=== PATIENT | female | born 1955 | race African-American/Black ===

== ENCOUNTER → 2017-01-07 | Outpatient (CLI) | payer OTHER ==
[2014-08-22 18:30] VITALS: BP 149/72
[~2017-01-07] MED LIST: ASPI325T70 PO; ATOR40TA59 PO; CIPR500T94 PO; CITA10TA4 PO; HYDR25TA9 PO; OLME1TAB PO; OXYC10TA PO
--- NOTE | 2017-01-07 12:04 | RAD ---
Indication chronic back pain. AP and lateral views of the lumbar spine were obtained as well as oblique views and a coned view targeted to the lumbosacral junction. Vertebral height is well maintained. There are small osteophytes seen at L1 and L2. Facet degenerative changes are seen at L4-5 and L5-S1. An acute bony finding is not seen. IMPRESSION: Modest spondylitic changes. No acute finding seen
== END | disposition home or self-care (01) ==
LOC: DXRADRC 11:34
PROVIDERS: ATTEND General Practice
DX: M47.897 Other spondylosis, lumbosacral region (principal)
CPT/HCPCS: 72110

== ENCOUNTER → 2017-01-22 | Outpatient (CLI) | payer OTHER ==
[2014-08-22 18:30] VITALS: BP 149/72
--- NOTE | 2017-01-22 11:16 | RAD ---
DATE: 01/22/2017 EXAM: DIGITAL SCREEN BILAT W/CAD HISTORY: Screening COMPARISON: Digitized film screen examination from 02/27/2012 This study was interpreted with the benefit of Computerized Aided Detection (CAD). FINDINGS: The breast parenchyma is primarily fatty replaced. Breast parenchyma level density A.. No dominant mass or suspect calcifications are seen. There has not been a significant change in the appearance of the breasts compared to the previous exam. IMPRESSION: Benign findings BI-RADS CATEGORY: 2 BENIGN FINDING(S) RECOMMENDED FOLLOW-UP: 12M 12 MONTH FOLLOW-UP PQRS compliance statement: Patient information was entered into a reminder system with a target due date 01/22/2018 for the next mammogram. Mammography is a sensitive method for finding small breast cancers, but it does not detect them all and is not a substitute for careful clinical examination. A negative mammogram does not negate a clinically suspicious finding and should not result in delay in biopsying a clinically suspicious abnormality. "Our facility is accredited by the [employer] Mammography Program."
--- NOTE | 2017-01-22 12:25 | RAD ---
Indication ovarian failure. Baseline exam. Screening for osteoporosis/osteopenia. The lumbar spine and right hip were evaluated. No prior bone density analysis is available. The calculated average bone mineral density in the lumbar spine is approximately 1.5 g/cc. The T score of 2.3 is normal. In the right hip the average bone mineral density is approximately 1.4 g/cc with a T score 3.6 which is also normal. IMPRESSION: Normal bone mineral density in the lumbar spine and right hip
== END | disposition home or self-care (01) ==
LOC: MAMMO 09:51
PROVIDERS: ATTEND Nurse Practitioner Family
DX: Z12.31 Encounter for screening mammogram for malignant neoplasm of breast (principal); Z78.0 Asymptomatic menopausal state
CPT/HCPCS: 77080; G0202; 77067

== ENCOUNTER 2018-05-06 08:55 | Emergency (ER) | payer OTHER ==
[~2018-05-06 08:55] MED LIST changes: -OLME1TAB PO; +OLME1TAB21 PO
--- NOTE | 2018-05-06 09:07 | ED.ADGEN ---
Past History Past Medical History: High Cholesterol, Heart Disease, Hypertension Past Surgical History: , Other Smoking: Non-smoker Alcohol Use: None Drug Use: None Adult General Chief Complaint Chief Complaint Abdominal wall hernia pain HPI HPI Patient is a 63-year-old female who presents with large ventral wall hernia with increased pain over the hernia site since yesterday. Patient states her hernia pops out every few months and she has been unable to reduce it since yesterday. Reports nausea, no vomiting. Patient states she is unable to have a bowel movement or pass flatus. No fever chills or sweats. No back pain. No other acute symptoms or complaints. Patient states she was previously told her hernia is inoperable. [] Review of Systems Review of Systems Review symptoms as per history of present illness. All other review symptoms are negative. All other systems were reviewed and found to be within normal limits, except as documented in this note. Current Medications Current Medications Current Medications Medications (Trade) Dose Ordered Sig/Aby Start Time Stop Time Status Last Admin Dose Admin Benzocaine (Hurricaine One) 1 spray 1X ONCE 05/06/18 12:30 05/06/18 12:31 DC 05/06/18 13:09 1 SPRAY Fentanyl Citrate (Fentanyl 2ml Vial) 50 mcg 1X ONCE 05/06/18 11:30 05/06/18 11:31 DC 05/06/18 11:21 50 MCG Morphine Sulfate (Morphine 2mg Syringe) 2 mg 1X ONCE 05/06/18 13:00 05/06/18 13:09 DC 05/06/18 13:01 2 MG Ondansetron HCl (Zofran) 4 mg 1X ONCE 05/06/18 09:15 05/06/18 09:16 DC 05/06/18 09:20 4 MG Sodium Chloride 1,000 ml @ 1,000 mls/hr 1X ONCE 05/06/18 10:30 05/06/18 11:29 DC 05/06/18 11:09 1,000 MLS/HR Allergies Allergies Allergies Coded Allergies Type Severity Reaction Last Updated Verified No Known Drug Allergies 05/06/18 No Physical Exam Physical Exam Constitutional: Well developed, well nourished, alert distress secondary to pain. [] HENT: Normocephalic, atraumatic, bilateral external ears normal, oropharynx moist, no oral exudates, nose normal. [] Eyes: PERRLA, EOMI, conjunctiva normal, no discharge. [] Neck: Normal range of motion, no tenderness, supple, no stridor. [] Cardiovascular:Heart rate regular rhythm, no murmur [] Lungs & Thorax: Bilateral breath sounds clear to auscultation [] Abdomen: Bowel sounds normal, soft, added, large ventral hernia, incarcerated, normal bowel sounds. [] Skin: Warm, dry, no erythema. [] Back: No tenderness, no CVA tenderness. [] Extremities: No tenderness. [] Neurologic: Alert and oriented X 3, normal motor function, normal sensory function, no focal deficits noted. [] Psychologic: Affect normal, judgement normal, mood normal. [] Current Patient Data Vital Signs Vital Signs Date Time Temp Pulse Resp B/P (MAP) Pulse Ox O2 Delivery O2 Flow Rate FiO2 05/06/18 13:01 24 96 Room Air 05/06/18 13:00 75 164/95 (118) 05/06/18 09:06 98.2 Lab Results Laboratory Tests Test 05/06/18 09:14 05/06/18 11:04 White Blood Count 8.2 x10^3/uL (4.0-11.0) Red Blood Count 6.08 x10^6/uL (3.50-5.40) H Hemoglobin 16.1 g/dL (12.0-15.5) H Hematocrit 48.4 % (36.0-47.0) H Mean Corpuscular Volume 80 fL (79-100) Mean Corpuscular Hemoglobin 27 pg (25-35) Mean Corpuscular Hemoglobin Concent 33 g/dL (31-37) Red Cell Distribution Width 14.5 % (11.5-14.5) Platelet Count 426 x10^3/uL (140-400) H Neutrophils (%) (Auto) 77 % (31-73) H Lymphocytes (%) (Auto) 16 % (24-48) L Monocytes (%) (Auto) 6 % (0-9) Eosinophils (%) (Auto) 0 % (0-3) Basophils (%) (Auto) 1 % (0-3) Neutrophils # (Auto) 6.3 x10^3uL (1.8-7.7) Lymphocytes # (Auto) 1.3 x10^3/uL (1.0-4.8) Monocytes # (Auto) 0.5 x10^3/uL (0.0-1.1) Eosinophils # (Auto) 0.0 x10^3/uL (0.0-0.7) Basophils # (Auto) 0.1 x10^3/uL (0.0-0.2) Sodium Level 139 mmol/L (136-145) Potassium Level 4.0 mmol/L (3.5-5.1) Chloride Level 100 mmol/L (98-107) Carbon Dioxide Level 25 mmol/L (21-32) Anion Gap 14 (6-14) Blood Urea Nitrogen 19 mg/dL (7-20) Creatinine 1.5 mg/dL (0.6-1.0) H Estimated GFR (Cockcroft-Gault) 42.4 BUN/Creatinine Ratio 13 (6-20) Glucose Level 153 mg/dL (70-99) H Lactic Acid Level 2.1 mmol/L (0.4-2.0) H Calcium Level 9.4 mg/dL (8.5-10.1) Total Bilirubin 0.8 mg/dL (0.2-1.0) Aspartate Amino Transferase (AST) 20 U/L (15-37) Alanine Aminotransferase (ALT) 36 U/L (14-59) Alkaline Phosphatase 106 U/L (46-116) Total Protein 8.6 g/dL (6.4-8.2) H Albumin 3.6 g/dL (3.4-5.0) Albumin/Globulin Ratio 0.7 (1.0-1.7) L Lipase 121 U/L (73-393) Urine Collection Type Void Urine Color Frances Urine Clarity Cloudy Urine pH 6.0 Urine Specific [place] >=1.030 Urine Protein 100 mg/dl (NEG-TRACE) Urine Glucose (UA) Neg mg/dL (NEG) Urine Ketones (Stick) 15 mg/dL (NEG) Urine Blood Neg (NEG) Urine Nitrite Neg (NEG) Urine Bilirubin Neg (NEG) Urine Urobilinogen Dipstick 0.2 mg/dL (0.2 mg/dL) Urine Leukocyte Esterase Neg (NEG) Urine RBC 0 /HPF (0-2) Urine WBC 1-4 /HPF (0-4) Urine Squamous Epithelial Cells Many /LPF Urine Bacteria Few /HPF (0-FEW) Urine Hyaline Casts Many /HPF Urine Mucus Marked /LPF EKG EKG [] Radiology/Procedures Radiology/Procedures [CT abdomen pelvis without contrast: Large ventral wall hernia with incarcerated : With sequential wall thickening and regular luminal narrowing at this level of the sigmoid: Concerning for a circumferential mass. Nonspecific mesenteric nodes are present.] Course & Med Decision Making Course & Med Decision Making Pertinent Labs and Imaging studies reviewed. (See chart for details) [ISigmoid mass with colonic obstruction. NG tube placed. Dr. Jamison to see in surgical consult. Dr. Collins accepts to [facility]] Final Impression Final Impression [1. colonic obstruction 2. sigmoid mass] Dragon Disclaimer Dragon Disclaimer This electronic medical record was generated, in whole or in part, using a voice recognition dictation system. JILL MONROY DO May 06, 2018 09:07
[2018-05-06] MEDS ORDERED: ONDANSETRON PF 4 MG/2 ML VIAL. IV ONE (09:15)
[2018-05-06] MEDS ORDERED: IV NORMAL SALINE 1,000ML 1,000 ML IV ONE ×2 (09:15→10:30)
[2018-05-06 09:25] LABS: BASO # 0.1 x10^3/uL (0.0-0.2); BASO % 1 % (0-3); EOS % 0 % (0-3); HEMATOCRIT 48.4 % (36.0-47.0); HEMOGLOBIN 16.1 g/dL (12.0-15.5); LYMPH # 1.3 x10^3/uL (1.0-4.8); LYMPH % 16 % (24-48); MEAN CORPUSCULAR HEMOGLOBIN 27 pg (25-35); MEAN CORPUSCULAR HGB CONC 33 g/dL (31-37); MEAN CORPUSCULAR VOLUME 80 fL (79-100); MONO # 0.5 x10^3/uL (0.0-1.1); MONO % 6 % (0-9); NEUT # 6.3 x10^3uL (1.8-7.7); NEUT % 77 % (31-73); PLATELET COUNT 426 x10^3/uL (140-400); RED BLOOD COUNT 6.08 x10^6/uL (3.50-5.40); RED CELL DISTRIBUTION WIDTH 14.5 % (11.5-14.5); WHITE BLOOD COUNT 8.2 x10^3/uL (4.0-11.0)
[2018-05-06 09:42] LABS: ALBUMIN 3.6 g/dL (3.4-5.0); ALBUMIN/GLOBULIN RATIO 0.7 (1.0-1.7); CALCIUM 9.4 mg/dL (8.5-10.1); CREATININE 1.5 mg/dL (0.6-1.0); GFR 42.4; TOTAL BILIRUBIN 0.8 mg/dL (0.2-1.0); TOTAL PROTEIN 8.6 g/dL (6.4-8.2)
[2018-05-06 11:27] LABS: BILIRUBIN,URINE NEG (NEG); CLARITY,URINE CLOUDY; COLOR,URINE AMBER; GLUCOSE,URINE NEG (NEG)
[2018-05-06 11:28] LABS: BACTERIA,URINE FEW /HPF (0-FEW); HYALINE CASTS, URINE MANY /HPF; NITRITE,URINE NEG (NEG); RBC,URINE 0 /HPF (0-2); SQUAMOUS EPITHELIAL CELL,UR MANY /LPF; UROBILINOGEN,URINE 0.2 mg/dL (0.2 mg/dL)
[2018-05-06] MEDS ORDERED: BENZOCAINE ONE 20% MUCOSAL SPRAY. (12:16)
[2018-05-06] MEDS ORDERED: BENZOCAINE ONE 20% MUCOSAL SPRAY. MM (12:30)
--- NOTE | 2018-05-06 12:35 | RAD ---
CT abdomen pelvis without intravenous contrast History: Abdominal pain for several days. Comparison: Report of CT abdomen pelvis October 15, 2013. Direct images are electronically unavailable. Technique: CT of the abdomen and pelvis was performed without intravenous or oral contrast. Exposure: One or more of the following individualized dose reduction techniques were utilized for this examination: 1. Automated exposure control 2. Adjustment of the mA and/or kV according to patient size 3. Use of iterative reconstruction technique Findings: Evaluation of solid organs is limited by lack of intravenous contrast. Evaluation of enteric structures may be limited by lack of oral contrast. Fatty liver disease is seen. Spleen, pancreas, and bilateral adrenal glands unremarkable. Gallbladder demonstrates presence of mildly dense material, may be sludge or possibly vicarious excretion of intravenous contrast recent procedure requiring such. Bilateral kidneys and ureters are free of stone or obstruction. Mild aortic atherosclerosis is seen. The appendix is apparently enlarged with a maximum diameter of 11 mm, although no periappendiceal inflammation is identified; enlargement of the appendix may be due to presence of a colonic distention by gas and fluid. Urinary bladder is unremarkable. Uterus is grossly unremarkable. Large, [place] ventral hernia is seen, incompletely visualized. There appears to been a previous repair with mesh and recurrent hernia is thought present along the inferior aspect. Much of the colon is distended by a liquid stool and gas. A transition point can be seen involving the mid sigmoid colon. The transition point demonstrates circumferential wall thickening and narrowing of the lumen of sigmoid colon; length of narrowing is approximately 3-4 cm. Circumferential mass is suspected. There are a few small adjacent mesenteric lymph nodes which are not convincingly pathologic by size; largest mesenteric lymph node measures 4 mm in short axis. Much of the distal left sigmoid colon is decompressed. Small amount of stool is present in the rectum. Impression: 1. Colonic obstruction at the level of the mid sigmoid colon. The transition point is associated with a circumferential wall thickening and irregular luminal narrowing of the sigmoid colon, worrisome for a circumferential mass. A few small nonspecific adjacent mesenteric lymph nodes are seen. 2. Recurrent ventral hernia. 3. Appendix is enlarged, but no convincing periappendiceal inflammation is identified. The appendiceal enlargement is thought to be a secondary to colonic obstruction with presence of a large amount of gas and liquid stool in the colon. Appendicitis is thought unlikely. Electronically signed by: Yrn Crow MD (05/06/2018 12:31 PM) [place] [id number]
[2018-05-06] MEDS ORDERED: MORPHINE SULFATE 2 MG/ML DISP.SYRIN. ONE (12:55)
[2018-05-06] MEDS ORDERED: MORPHINE SULFATE 2 MG/ML DISP.SYRIN. IV ONE (13:00)
--- NOTE | 2018-05-06 13:40 | RAD ---
KUB Clinical Indication: POST NG PLACEMENT Comparison: CT abdomen and pelvis without contrast, earlier same day. Findings: There is enteric tube tip in the proximal stomach. No obvious opacity in the lung bases. Mild air in bowel. Lower abdomen is outside of [id number]. Unchanged mildly dilated colon in the midabdomen. IMPRESSION: Enteric tube tip is in the proximal stomach. Electronically signed by: Juni Buitrago MD (05/06/2018 1:36 PM) [id number]
[2018-05-06 13:47] VITALS: BP 187/107
== END 2018-05-06 13:48 | disposition short-term general hospital (02) ==
LOC: ER 08:55
DX: K56.609 Unspecified intestinal obstruction, unspecified as to partial versus complete obstruction (principal); K63.89 Other specified diseases of intestine; K43.9 Ventral hernia without obstruction or gangrene; E78.00 Pure hypercholesterolemia, unspecified; I11.9 Hypertensive heart disease without heart failure; Z98.890 Other specified postprocedural states
CPT/HCPCS: 36415; 74018; 74176; 80053; 81001; 83605; 83690; 85025; 96374; 96375; 96376; 99285; J2270; J2405; J3010; J7030

== ENCOUNTER 2018-05-26 15:11 | Emergency (ER) | payer OTHER ==
[2018-05-26 15:24] VITALS: BP 163/95
--- NOTE | 2018-05-26 15:47 | PHYS DOC ---
Past History Past Medical History: Other Past Surgical History: Other Smoking: Non-smoker Alcohol Use: None Drug Use: None Adult General Chief Complaint Chief Complaint: OSTOMY PROBLEM HPI HPI Patient is a 63 year old female who presents with complaining of colostomy problem. 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 Patient denies fever and chills and abdominal pain. Review of Systems Review of Systems Constitutional: Denies fever or chills [] Eyes: Denies change in visual acuity, redness, or eye pain [] HENT: Denies nasal congestion or sore throat [] Respiratory: Denies cough or shortness of breath [] Cardiovascular: No additional information not addressed in HPI [] GI: Denies abdominal pain, nausea, vomiting, bloody stools or diarrhea [] : Denies dysuria or hematuria [] Musculoskeletal: Denies back pain or joint pain [] Integument: Denies rash or skin lesions [] Neurologic: Denies headache, focal weakness or sensory changes [] Endocrine: Denies polyuria or polydipsia [] All other systems were reviewed and found to be within normal limits, except as documented in this note. Allergies Allergies Allergies Coded Allergies Type Severity Reaction Last Updated Verified No Known Drug Allergies 05/06/18 No Physical Exam Physical Exam Constitutional: Well developed, well nourished, no acute distress, non-toxic appearance. [] HENT: Normocephalic, atraumatic.] Eyes: PERRLA, EOMI, conjunctiva normal, no discharge. [] Neck: Normal range of motion, no tenderness, supple, no stridor. [] Cardiovascular:Heart rate regular rhythm, no murmur [] Lungs & Thorax: Bilateral breath sounds clear to auscultation [] Abdomen: Bowel sounds normal, soft, no tenderness, no masses, no pulsatile masses, left colostomy in place with good color of ostomy and the skin around it Skin: Warm, dry, no erythema, no rash. [] Back: No tenderness, no CVA tenderness. [] Extremities: No tenderness, no cyanosis, no clubbing, ROM intact, no edema. [] Neurologic: Alert and oriented X 3, normal motor function, normal sensory function, no focal deficits noted. [] Psychologic: Affect normal, judgement normal, mood normal. [] Current Patient Data Vital Signs Vital Signs Date Time Temp Pulse Resp B/P (MAP) Pulse Ox O2 Delivery O2 Flow Rate FiO2 05/26/18 15:24 98.5 75 18 97 Room Air EKG EKG [] Radiology/Procedures Radiology/Procedures [] Course & Med Decision Making Course & Med Decision Making discharge: I've spoken with the patient and/or caregivers. I've explained the patient's condition, diagnosis and treatment plan based on information available to me at this time. I've answered the patient's and/or caregivers questions and addressed any concerns. The patient and/or caregivers have a good understanding the patient's diagnosis, condition and treatment plan as can be expected at this point. Vital signs have been stabilized. The patient's condition is stable for discharge from the emergency department. The patient will pursue further outpatient evaluation with her primary care provider or other designated consulting physician as outlined in the discharge instructions. Patient and/or caregivers are agreeable to this plan of care and follow-up instructions have been explained in detail. The patient and/or caregivers have received these instructions in written format and expressed understanding of these discharge instructions. The patient and her caregivers are aware that if any significant change in condition or worsening of symptoms should prompt him to immediately return to this of the closest emergency department. If an emergent department is not readily available I would encourage him to call 911. iVckyon Disclaimer Dragon Disclaimer This electronic medical record was generated, in whole or in part, using a voice recognition dictation system. Departure Departure: Impression: Primary Impression: Deficient knowledge of colostomy home care Disposition: HOME, SELF-CARE (at 1546) Condition: STABLE Referrals: JAYCE CORDON DO (PCP) Patient Instructions: Colostomy Home Guide, Colostomy Surgery, Care After Additional Instructions: Follow-up with your primary care physician in 3-5 days Return to ER if not getting better JENNIFER MCMANUS MD May 26, 2018 15:47
== END 2018-05-26 15:56 | disposition home or self-care (01) ==
LOC: ER 15:11
DX: K94.09 Other complications of colostomy (principal)
CPT/HCPCS: 99281

== ENCOUNTER 2019-09-01 13:55 | Emergency (ER) | payer MEDICAID, OTHER ==
[~2019-09-01] VITALS: Ht 165.1 cm; Wt 131.1 kg
[~2019-09-01 13:55] MED LIST changes: +HYDR-2145 PO; -HYDR25TA9 PO
[2019-09-01] MEDS ORDERED: MECLIZINE 12.5 MG TABLET. PO PRN (14:15)
--- NOTE | 2019-09-01 14:32 | RAD ---
Examination: CT HEAD WO CONTRAST History: Dizziness Comparison/Correlation: 12/28/2013 CT head without contrast Findings: Axial images of the head were obtained without contrast. Metastatic disease present. No intracranial hemorrhage, midline shift, mass effect. Old right basal ganglia lacunar infarct is present. Bony structures unremarkable. Impression: No suspicious process. PQRS Compliance Statement: One or more of the following individualized dose reduction techniques were utilized for this examination: 1. Automated exposure control 2. Adjustment of the mA and/or kV according to patient size 3. Use of iterative reconstruction technique Electronically signed by: Marcos Pierson MD (09/01/2019 2:28 PM) [facility]
--- NOTE | 2019-09-01 14:32 | RAD ---
CHEST AP ONLY Clinical Indication: Shortness of breath Comparison: 12/28/2013 2 view chest x-ray exam. Findings: Frontal view chest was obtained. The cardiomediastinal silhouette is normal. Lungs are clear. There is no pneumothorax. No pleural effusion is appreciated. No acute bone abnormality. IMPRESSION: No acute cardiopulmonary process. Electronically signed by: Marcos Pierson MD (09/01/2019 2:29 PM) [facility]
[2019-09-01 14:39] LABS: BASO % 1 % (0-3); EOS # 0.1 x10^3/uL (0.0-0.7); EOS % 2 % (0-3); HEMATOCRIT 44.3 % (36.0-47.0); HEMOGLOBIN 14.3 g/dL (12.0-15.5); LYMPH # 0.9 x10^3/uL (1.0-4.8); LYMPH % 15 % (24-48); MEAN CORPUSCULAR HEMOGLOBIN 27 pg (25-35); MEAN CORPUSCULAR HGB CONC 32 g/dL (31-37); MEAN CORPUSCULAR VOLUME 82 fL (79-100); MONO # 0.4 x10^3/uL (0.0-1.1); MONO % 7 % (0-9); NEUT # 4.5 x10^3uL (1.8-7.7); NEUT % 76 % (31-73); PLATELET COUNT 290 x10^3/uL (140-400); RED CELL DISTRIBUTION WIDTH 14.9 % (11.5-14.5)
--- NOTE | 2019-09-01 14:41 | PHYS DOC ---
Past History Past Medical History: Hypertension, Other Additional Past Medical Histor: colon cancer Past Surgical History: , Hysterectomy, Other Additional Past Surgical Histo: colostomy; abd hernia repairs x3 Smoking: Non-smoker Alcohol Use: None Drug Use: None Adult General Chief Complaint Chief Complaint: DIZZY/LIGHT HEADED HPI HPI Patient is a 64-year-old female who presents dizziness upon position change and head position change. Patient also reports right ear pain and fullness behind right ear for the past several days. Patient hypertensive, 200 over 100s on ED arrival. States she is compliant with her blood pressure medication. Denies headache. Reports nausea with vomiting earlier today. No neck pain, tinnitus, extremity weakness or loss of sensation. No other acute symptoms or complaints.[] Review of Systems Review of Systems Review symptoms as per history of present illness. All other review symptoms are negative. All other systems were reviewed and found to be within normal limits, except as documented in this note. Current Medications Current Medications Current Medications Medications (Trade) Dose Ordered Sig/Aby Start Time Stop Time Status Last Admin Dose Admin Meclizine HCl (Antivert) 50 mg 1X PRN 09/01/19 14:15 09/01/19 14:22 50 MG Allergies Allergies Allergies Coded Allergies Type Severity Reaction Last Updated Verified No Known Drug Allergies 09/01/19 No Physical Exam Physical Exam Constitutional: Well developed, well nourished, no acute distress, non-toxic appearance. [] HENT: Normocephalic, atraumatic, right TM, cerumen impaction, bilateral external ears normal, oropharynx moist, nose normal. [] Eyes: PERRLA, EOMI, conjunctiva normal, nystagmus.. [] Neck: Normal range of motion, no tenderness, supple, no stridor. [] Cardiovascular:Heart rate regular rhythm, no murmur [] Lungs & Thorax: Bilateral breath sounds clear to auscultation [] Abdomen: Bowel sounds normal, soft, no tenderness, no masses, no pulsatile masses. [] Skin: Warm, dry, no erythema, no rash. [] Back: No tenderness, no CVA tenderness. [] Extremities: No tenderness, no cyanosis, no clubbing, ROM intact, no edema. [] Neurologic: Alert and oriented X 3, cranial nerves II through XII grossly intact, right lower extremity weakness, NIH stroke score of 3 per nursing stroke assessment. [] Psychologic: Affect normal, judgement normal, mood normal. [] Current Patient Data Vital Signs Vital Signs Date Time Temp Pulse Resp B/P (MAP) Pulse Ox O2 Delivery O2 Flow Rate FiO2 09/01/19 14:02 97.7 63 18 100 Room Air EKG EKG [] Radiology/Procedures Radiology/Procedures [CT head: No acute findings, old basal ganglia stroke present. Course & Med Decision Making Course & Med Decision Making Pertinent Labs and Imaging studies reviewed. (See chart for details) [NIH Score 3 with residual strokes findings on exam. Patient's outside of window for Blood pressure improved with treatment patient remains dizzy with ataxia. Concern for cerebellar infarct. Dr. Shetty to admit to [facility]] Rene Disclaimer Rene Disclaimer This electronic medical record was generated, in whole or in part, using a voice recognition dictation system. Departure Departure: Impression: Primary Impression: Vertigo Additional Impressions: Ataxia Accelerated hypertension Disposition: 02 XFER SHT-TRM HOSP Condition: STABLE Referrals: JAYCE CORDON DO (PCP) Problem Qualifiers JILL MONROY DO Sep 01, 2019 14:41
[2019-09-01 14:57] LABS: ALBUMIN 3.2 g/dL (3.4-5.0); ALBUMIN/GLOBULIN RATIO 0.7 (1.0-1.7); CALCIUM 9.3 mg/dL (8.5-10.1); GFR 67.5; POTASSIUM 3.9 mmol/L (3.5-5.1); TOTAL BILIRUBIN 0.4 mg/dL (0.2-1.0); TOTAL PROTEIN 7.5 g/dL (6.4-8.2)
[2019-09-01] MEDS ORDERED: cloNIDine HCL 0.1 MG TABLET PO ONE (15:15)
[2019-09-01] MEDS ORDERED: hydrALAZINE 20 MG/ML VIAL. IV ONE (16:00)
[2019-09-01 16:11] LABS: BACTERIA,URINE FEW /HPF (0-FEW); BILIRUBIN,URINE NEG (NEG); CLARITY,URINE CLEAR; COLOR,URINE YELLOW; GLUCOSE,URINE 250 mg/dL (NEG); NITRITE,URINE NEG (NEG); RBC,URINE 0 /HPF (0-2); SQUAMOUS EPITHELIAL CELL,UR OCC /LPF; UROBILINOGEN,URINE 0.2 mg/dL (0.2 mg/dL)
[2019-09-01] MEDS ORDERED: ASPIRIN ENTERIC COATED 81 MG TABLET.DR. PO ONE (16:30)
[2019-09-01] MEDS ORDERED: ONDANSETRON PF 4 MG/2 ML VIAL. IVP ONE (17:00)
[2019-09-01 18:40] VITALS: BP 138/72
== END 2019-09-01 18:55 | disposition short-term general hospital (02) ==
LOC: ER 14:10
DX: I10 Essential (primary) hypertension (principal); R27.0 Ataxia, unspecified; H92.01 Otalgia, right ear; R11.2 Nausea with vomiting, unspecified
CPT/HCPCS: 36415; 70450; 71045; 80053; 81001; 84443; 84484; 85025; 96374; 96375; 99285; J0360; J2405; J8597

== ENCOUNTER → 2020-02-20 | Outpatient (CLI) | payer MEDICARE, MEDICAID ==
[2020-02-20 15:56] LABS: BASO # 0.1 x10^3/uL (0.0-0.2); BASO % 1 % (0-3); EOS # 0.1 x10^3/uL (0.0-0.7); EOS % 2 % (0-3); HEMATOCRIT 42.6 % (36.0-47.0); HEMOGLOBIN 13.9 g/dL (12.0-15.5); LYMPH # 1.5 x10^3/uL (1.0-4.8); LYMPH % 25 % (24-48); MEAN CORPUSCULAR HEMOGLOBIN 27 pg (25-35); MEAN CORPUSCULAR HGB CONC 33 g/dL (31-37); MEAN CORPUSCULAR VOLUME 82 fL (79-100); MONO # 0.4 x10^3/uL (0.0-1.1); MONO % 7 % (0-9); NEUT # 4.1 x10^3uL (1.8-7.7); NEUT % 66 % (31-73); PLATELET COUNT 255 x10^3/uL (140-400); RED BLOOD COUNT 5.19 x10^6/uL (3.50-5.40); WHITE BLOOD COUNT 6.1 x10^3/uL (4.0-11.0)
[2020-02-20 16:33] LABS: ALBUMIN 3.1 g/dL (3.4-5.0); ALBUMIN/GLOBULIN RATIO 0.7 (1.0-1.7); CALCIUM 8.3 mg/dL (8.5-10.1); CREATININE 1.1 mg/dL (0.6-1.0); GFR 60.3; POTASSIUM 4.1 mmol/L (3.5-5.1); TOTAL BILIRUBIN 0.3 mg/dL (0.2-1.0); TOTAL PROTEIN 7.3 g/dL (6.4-8.2)
== END ==
LOC: LAB 15:13
PROVIDERS: ATTEND Internal Medicine Hematology & Oncology
DX: C18.7 Malignant neoplasm of sigmoid colon (principal)
CPT/HCPCS: 36415; 80053; 82378; 85025